=== PATIENT | male | born 1980 | race American Indian/Alaskan Native ===

== ENCOUNTER 2019-10-25 15:28 | Emergency (ER) | payer SELFPAY ==
[2019-10-25 16:24] VITALS: BP 127/83
--- NOTE | 2019-10-25 16:27 | Emergency Department Report ---
Chief Complaint: Extremity Problem,Nontraumatic Stated Complaint: SCIATICA NERVE - HPI History of Present Illness: 39 y/o male with right radicular lumbar pain no abd mass no neuro deficits good pulses gcs 15 no neuro deficits walks with steady gait discussed treatment and options not an emergent medication condition referred to registration S1, S2, regular rate and rhythm. No murmurs, rubs or gallops. Breath sounds clear to auscultation bilaterally. Abdomen soft and benign, with no rebound, guarding or peritoneal signs. Head is normocephalic atraumatic. The neck is supple. There is no adenopathy. Extraocular movements are intact. there is no facial droop. The tongue is midline. The extraocular movements are intact bilaterally. Hearing is intact. Phonation is within normal limits. Speech is fluid and luccid. There is 5 out of 5 strength in 4 extremities. Sensation is intact to light touch in 4 extremities. in. There is a normal gait. 2+ pulses noted in the bilateral upper and lower extremities. Downgoing plantar reflexes bilaterally. Sensation is intact to light touch and pinch in the bilateral lower extremities. No abdominal tenderness. No pulsatile abdominal mass. No bladder or bowel retention or incontinence or saddle anesthesia. Vital Signs 10/25/19 16:22 Temperature 97.7 F Pulse Rate 70 Respiratory 18 Rate Blood Pressure 127/83 O2 Sat by Pulse 100 Oximetry - Exam Vital Signs: Vital Signs 10/25/19 16:22 Temperature 97.7 F Pulse Rate 70 Respiratory 18 Rate Blood Pressure 127/83 O2 Sat by Pulse 100 Oximetry MSE screening note: Focused history and physical exam performed. Due to findings the following was ordered: ED Disposition for MSE Clinical Impression: General medical exam, Radicular pain Disposition: Z-[id number] MED SCREENING EXAM-LEFT Is pt being admited?: No Does the pt Need Aspirin: No Condition: Stable Additional Instructions: physical activities as tolerated avoid excessive heavy lifting take otc tylenol 650 by mouth every 4-6 hours with motrin 600 mg by mouth with food every 6 hours follow up with a pmd within 2-4 weeks return right away with new worse different symptoms or symptoms not present on the initial er evaluation Referrals: [facility] [Provider Group] - 3-[address] [facility] [Provider Group] - 3-5 Days MIRNA MIRANDA MD [Staff Physician] - 3-5 Days PRIMARY CARE, [Primary Care Provider] - 3-5 Days Forms: Work/School Release Form(ED)
== END 2019-10-25 16:50 | disposition left against medical advice (07) ==
LOC: ED 15:28
DX: M54.16 Radiculopathy, lumbar region (principal); Z00.00 Encounter for general adult medical examination without abnormal findings
CPT/HCPCS: 99281